=== PATIENT | male | born 1935 | race Caucasian/White ===

== ENCOUNTER → 2017-01-16 07:17 | Outpatient (CLI) | payer MEDICARE | END | disposition home or self-care (01) | LOC: D.CT 07:17 | DX: R10.9 Unspecified abdominal pain (principal) ==

== ENCOUNTER → 2017-11-14 07:33 | Outpatient (CLI) | payer MEDICARE | END | disposition home or self-care (01) | LOC: D.CT 07:33 | DX: R63.4 Abnormal weight loss (principal) ==

== ENCOUNTER → 2018-02-28 07:06 | Outpatient (CLI) | payer MEDICARE | END | disposition home or self-care (01) | LOC: D.MRI 07:00 | DX: M54.5 Low back pain (principal) ==

== ENCOUNTER → 2018-10-24 09:19 | Outpatient (CLI) | payer MEDICARE | END | disposition home or self-care (01) | LOC: D.RT 09:19 | PROVIDERS: ATTEND Internal Medicine Pulmonary Disease | DX: J44.9 Chronic obstructive pulmonary disease, unspecified (principal) ==

== ENCOUNTER 2018-11-12 07:14 | Outpatient (CLI) | payer MEDICARE ==
[~2018-11-12] VITALS: Ht 170.2 cm; Wt 60.0 kg
[2018-11-12 07:42] LABS: BASOPHILS 0.5 % (0-2); EOSINOPHILS 5.7 % (0-7); HEMATOCRIT 42.5 % (42.0-54.0); HEMOGLOBIN 14.4 g/dL (13.5-17.5); IMMATURE GRANULOCYTES 0.3 % (0-5); LYMPHOCYTES 31.2 % (15-50); MCH 30.8 pg (26.0-34.0); MCHC 33.9 g/dL (31.0-37.0); MEAN PLATELET VOLUME 9.2 fL (7.4-10.4); MONOCYTES 15.5 % (2-11); NEUTROPHILS 46.8 % (40-80); PLATELET COUNT 278 10x3/uL (130-400); RBC 4.67 10x6/uL (4.20-6.10); RDW 16.7 % (11.5-14.5); WBC 6.4 10x3/uL (4.8-10.8)
[2018-11-12 08:02] LABS: APTT 32.7 SECONDS (22.8-39.4); INR 1.04 (0.85-1.17); PROTIME 13.1 SECONDS (11.6-15.0)
[2018-11-12] MEDS ORDERED: SYNTHROID25 MCG PO (08:03)
[2018-11-12] MEDS ORDERED: SYNTHROID50 MCG PO (08:05)
[2018-11-12 08:10] VITALS: BP 120/72; Ht 170.2 cm; Wt 60.0 kg
[2018-11-13 16:08] LABS: AFB SPECIMEN PROCESSING Concentration (())
[2019-01-02 13:10] LABS: ACID FAST CULTURE Negative (()); ACID FAST SMEAR Negative (())
== END 2018-11-12 12:50 | disposition home or self-care (01) ==
LOC: D.OPS 07:14
PROVIDERS: ATTEND Internal Medicine Pulmonary Disease
DX: R22.9 Localized swelling, mass and lump, unspecified (principal)

== ENCOUNTER → 2018-12-25 11:10 | Outpatient (CLI) | payer MEDICARE ==
[2018-11-12 08:10] VITALS: BMI 20.7
[~2018-12-25 11:10] MED LIST: SYNTHROID25 MCG PO; SYNTHROID50 MCG PO
== END | disposition home or self-care (01) ==
LOC: D.CT 11:10
PROVIDERS: ATTEND Internal Medicine Pulmonary Disease
DX: R59.0 Localized enlarged lymph nodes (principal)